=== PATIENT | male | born 1965 | race Two or more races ===

== ENCOUNTER 2025-05-24 08:19 | Outpatient (CLI) | payer OTHER ==
[2025-05-24 09:58] LABS: ALT/SGPT 25.0 U/L (12-78); AST/SGOT 17.0 U/L (15-37); BILIRUBIN TOTAL 0.53 mg/dL (0.3-1.2); BUN CREA RATIO 21.0 (7.0-25.0); CREATININE SERUM 0.53 mg/dL (0.70-1.30); GFR 158.58; GLOBULINA 3.3 G/DL (2.4-3.5); GLUCOSE FASTING 85.0 mg/dL (65-100); OSMOLALITY SERUM 284.0 MOSM/KG (275-295)
== END 2025-05-24 08:26 | disposition home or self-care (01) ==
LOC: LAB 08:19 → RAD 08:19
DX: I10 Essential (primary) hypertension (principal); E83.52 Hypercalcemia